=== PATIENT | female | born 1970 | race Caucasian/White ===

== ENCOUNTER 2016-11-12 10:04 | Day surgery (SDC) | payer OTHER ==
[2016-11-10 13:19] VITALS: BMI 27.0
[2016-11-12] MEDS ORDERED: PROPOFOL 20 ML ONE (10:43)
[2016-11-12 12:33] VITALS: TEMP 97.8
[2016-11-12 12:37] VITALS: BP 112/58; PULSE 56
--- NOTE | 2016-11-14 11:58 | PATH ---
Surgical Pathology Report Patient Name: ANA GAYLE [facility]. Rec. #: [id number] /Age/Gender: 1970 (Age: 46) / F Account: [id number] Location: [facility], [facility]-ENDOSCOPY Taken: 11/12/2016 Received: 11/12/2016 Reported: 11/14/2016 Physicians: Serene Mei M.D. Specimen(s) Received A: SMALL BOWEL / EFFERENT B: SMALL BOWEL / AFFERENT C: GASTRIC POUCH D: BX GE JUNCTION Clinical History Abdominal pain, GERD Gastritis Final Diagnosis A. SMALL BOWEL, EFFERENT, BIOPSY: SMALL INTESTINE MUCOSA WITH NO PATHOLOGIC CHANGES. NO HISTOLOGIC EVIDENCE OF GLUTEN SENSITIVE ENTEROPATHY (CELIAC SPRUE) IDENTIFIED. B. SMALL BOWEL, AFFERENT, BIOPSY: SMALL INTESTINAL MUCOSA WITH NO PATHOLOGIC CHANGES. NO HISTOLOGIC EVIDENCE OF GLUTEN SENSITIVE ENTEROPATHY (CELIAC SPRUE) IDENTIFIED. C. STOMACH, GASTRIC POUCH, BIOPSY: GASTRIC MUCOSA WITH VASCULAR CONGESTION. NO INFLAMMATORY INFILTRATES IDENTIFIED. IMMUNOSTAIN FOR H. PYLORI IS NEGATIVE. D. GE JUNCTION, BIOPSY: GASTRIC-TYPE MUCOSA WITH CHRONIC INFLAMMATION, AND SQUAMOUS EPITHELIUM WITH PAPILLOMATOSIS SUGGESTIVE OF REFLUX ESOPHAGITIS. NO INTESTINAL METAPLASIA IDENTIFIED (NO BONILLA'S IDENTIFIED). Electronically Signed Vasu Weiner M.D. Gross Description A. Received in formalin, labeled "small bowel efferent" is a good, irregular portion of soft tissue measuring 0.6 cm. in greatest dimension. The specimen is submitted in toto in one cassette. B. Received in formalin, labeled "small bowel afferent" is a good, irregular portion of soft tissue measuring 0.6 cm. in greatest dimension. The specimen is submitted in toto in one cassette. C. Received in formalin, labeled "gastric pouch" is a good, irregular portion of soft tissue measuring 0.7 cm. in greatest dimension. The specimen is submitted in toto in one cassette. D. Received in formalin, labeled "GE junction" is a good, irregular portion of soft tissue measuring 0.3 cm. in greatest dimension. The specimen is submitted in toto in one cassette. 11/13/2016 saudi11/13/2016
== END 2016-11-12 12:20 | disposition home or self-care (01) ==
LOC: FASU-ENDO 10:04
PROVIDERS: ATTEND Internal Medicine Gastroenterology
PROC: 0DB48ZX Excision of Esophagogastric Junction, Via Natural or Artificial Opening Endoscopic, Diagnostic (ICD-10-PCS; 2016-11-12)
PROC: 0DB98ZX Excision of Duodenum, Via Natural or Artificial Opening Endoscopic, Diagnostic (ICD-10-PCS; principal; 2016-11-12 11:37)
PROC: 0DB68ZX Excision of Stomach, Via Natural or Artificial Opening Endoscopic, Diagnostic (ICD-10-PCS; 2016-11-12 11:37)
DX: R10.9 Unspecified abdominal pain (principal); K31.89 Other diseases of stomach and duodenum
CPT/HCPCS: 84703; 88305-TC; 88342-TC